=== PATIENT | male | born 1970 | race Caucasian/White ===

== ENCOUNTER → 2017-03-03 | Outpatient (CLI) | payer BC ==
--- NOTE | 2017-03-03 16:23 | DIAGNOSTIC IMAGING REPORT ---
LEFT HAND MIN 3 VIEWS CLINICAL HISTORY: Left hand pain. Trauma. COMPARISON: None. DISCUSSION: No fractures or dislocations are visualized. There is a corticated ossicle adjacent to the radial base of the proximal phalanx the third digit. This is felt to be old. IMPRESSION: No acute fractures or dislocations identified. Electronically signed by: Philip Olsen M.D. 03/03/2017 4:22 PM Dictated Date/Time: 03/03/2017 4:20 PM
== END | disposition home or self-care (01) ==
LOC: C.RDSM 11:41
PROVIDERS: ATTEND Family Medicine
DX: M79.642 Pain in left hand (principal)

== ENCOUNTER → 2017-03-04 | Outpatient (CLI) | payer BC ==
--- NOTE | 2017-03-04 19:29 | DIAGNOSTIC IMAGING REPORT ---
ORBIT RADIOGRAPHS 3 VIEWS HISTORY: pre-MRI screening. COMPARISON: None. FINDINGS: There are no radiopaque foreign bodies identified within the orbits. IMPRESSION: No radiopaque foreign bodies identified within the orbits. Electronically signed by: Philip Olsen M.D. 03/04/2017 7:28 PM Dictated Date/Time: 03/04/2017 7:28 PM
--- NOTE | 2017-03-05 09:12 | DIAGNOSTIC IMAGING REPORT ---
MRI OF THE LEFT HAND NO CONTRAST CLINICAL HISTORY: Trauma. Middle finger injury. Patient unable to straighten fingers. COMPARISON STUDY: Conventional radiographic study dated 03/03/2017 FINDINGS: Imaging was performed in the sagittal, coronal, and axial planes. There are no areas of marrow edema to indicate occult fracture. There are mild osteoarthritic changes. There is extensive volar soft tissue edema involving the third finger. There is fluid within the flexor digitorum profundus and flexor digitorum superficialis tendon sheath. There are foci of minimal increased signal within the flexor digitorum profundus tendon, likely secondary to a partial tear/strain.. There is no evidence of acute collateral ligament or palmar ligament tear. IMPRESSION: 1. No evidence of occult fracture 2. Extensive volar soft tissue edema involving the third/middle digit 3. Fluid within the flexor digitorum profundus and flexor digitorum superficialis tendon sheath. Minimal increased signal within the flexor digitorum profundus tendon, likely secondary to an intrasubstance tear. No evidence of tendon rupture. Electronically signed by: Philip Olsen M.D. 03/05/2017 9:11 AM Dictated Date/Time: 03/04/2017 8:30 PM
== END | disposition home or self-care (01) ==
LOC: C.MRI 18:56
PROVIDERS: ATTEND Family Medicine
DX: M79.642 Pain in left hand (principal)

== ENCOUNTER → 2017-03-20 | Outpatient (CLI) | payer BC ==
[2017-03-20 12:24] LABS: ESTIMATED AVERAGE GLUCOSE 111 mg/dl; HA1C FLAG Normal (Normal)
[2017-03-20 15:30] LABS: LYME DISEASE AB IGG NEG (NEG); LYME DISEASE AB IGM NEG (NEG)
[2017-03-21 15:28] LABS: ALBUMIN 4.5 G/DL (3.8-4.8); GAMMA GLOBULIN 0.9 G/DL (0.8-1.7); TOTAL PROTEIN 7.1 G/DL (6.2-8.3)
== END | disposition home or self-care (01) ==
LOC: C.LAB 11:16
PROVIDERS: ATTEND Psychiatry & Neurology Neurology
DX: G62.9 Polyneuropathy, unspecified (principal)